=== PATIENT | male | born 1965 | race Caucasian/White ===

== ENCOUNTER 2022-09-23 06:04 | Day surgery (SDC) | payer OTHER ==
[~2022-09-23] VITALS: Ht 177.8 cm; Wt 79.3 kg
[2022-09-23] VITALS (18 sets, daily range): BP systolic 98–141; BP diastolic 57–99
[2022-09-23] MEDS ORDERED: IBUP400 PO (06:25)
[2022-09-23] MEDS ORDERED: Ventolin5 MG/1 ML INH (06:25)
[2022-09-23] MEDS ORDERED: ACYC400 PO (06:27)
[2022-09-23] MEDS ORDERED: ZYRTEC10 M2 PO (06:28)
--- NOTE | 2022-09-23 06:45 | NUR ---
Ambulatory in Day Surgery History, Chart, Medications and Allergies reviewed before start of procedure.Lungs clear T/O to Auscultation. Patient confirms NPO status and agrees with scheduled surgery. Patient reports completing Chlorhexadine shower X2 prior to admission to hospital.Surgical site prepped with 2% Chlorhexidine cloth wipe. Patient States Post-Procedure ride home has been arranged.
--- NOTE | 2022-09-23 10:49 | NUR ---
REPORT RECIEVED. PT HEAVING AND SPITTING UP YELLOW SPUTUM. WAITING ON ORDER FOR NAUSEA MEDICATION. COOL RAG PROVIDED. VSS. OM ROOM AIR. STATES PAIN IS VERY LITTLE. DRESSING C/D/I
--- NOTE | 2022-09-23 11:11 | NUR ---
PT C/O NAUSEA. ORDER RECIEVED FOR PHENERGAN, PHARMACY OKAYED TO GIVE AFTER FLAGGED BY EMAR FOR POSSIBLE INTERACTION WITH REGLAN GIVEN 1 HOUR AGO. PT ABLE TO SWALLOW WITH A FEW SIPS OF WATER. CRACKERS OFFERED. ON ROOM AIR. VSS.
--- NOTE | 2022-09-23 11:28 | NUR ---
Discharge instructions reviewed with patient and Patient verbalizes understanding. Copy given to patient to take home. prescription provided.
--- NOTE | 2022-09-23 11:49 | NUR ---
Patient up to Ambulate independently. Gait steady. Dressing to procedure site clean, dry, intact with no visible drainage, swelling, erythema or bruising noted. DR CLEARY CONSULTED FOR PERSISTANT NAUSEA. HE WROTE A SCRIPT TO GO HOME WITH PATIENT. DR CLEARY AT BEDSIDE Discharged via wheelchair to private car for ride home.
== END 2022-09-23 11:51 | disposition home or self-care (01) ==
LOC: ORSCMMR 06:04 → ORD 07:30 → ORSCMMR 07:30
PROVIDERS: Surgery
PROC: 0YUA0JZ Supplement Bilateral Inguinal Region with Synthetic Substitute, Open Approach (ICD-10-PCS; principal; 2022-09-23 07:30)
DX: K40.20 Bilateral inguinal hernia, without obstruction or gangrene, not specified as recurrent (principal); I10 Essential (primary) hypertension; F17.210 Nicotine dependence, cigarettes, uncomplicated; J44.9 Chronic obstructive pulmonary disease, unspecified; E78.00 Pure hypercholesterolemia, unspecified; Z86.73 Personal history of transient ischemic attack (TIA), and cerebral infarction without residual deficits; Z79.899 Other long term (current) drug therapy
CPT/HCPCS: A9270; C1781; J0690; J1100; J1885; J2250; J2405; J2704; J2765; J3010; J7120